=== PATIENT | female | born 1945 | race Caucasian/White ===

== ENCOUNTER 2024-07-30 11:16 | Outpatient (CLI) | payer MEDICARE | END 2024-07-30 23:59 | disposition critical access hospital (66) | LOC: EMS 11:16 | DX: S01.81XA Laceration without foreign body of other part of head, initial encounter (principal); W19.XXXA Unspecified fall, initial encounter; Y92.099 Unspecified place in other non-institutional residence as the place of occurrence of the external cause; R51.9 Headache, unspecified | CPT/HCPCS: A0425; A0429 ==

== ENCOUNTER 2024-07-30 11:34 | Emergency (ER) | payer MEDICARE ==
--- NOTE | 2024-07-30 11:52 | ED Physician Documentation ---
History of Present Illness - Stated complaint Stated Complaint: GLF - Additonal information Additional information: Patient is a 79-year-old female presenting to the emergency department with ground-level fall. Patient has past medical history of dementia ANO x 1 on arrival. Patient appears in no acute distress. She reports pain to her left shoulder and neck and head. Patient sustained laceration to posterior left head. PD PAST MEDICAL HISTORY - Allergies Allergies/Adverse Reactions: Allergies Allergy/AdvReac Type Severity Reaction Status Date / Time Sulfa (Sulfonamide Allergy Unknown Verified 07/30/24 11:41 Antibiotics) milk AdvReac Unknown Verified 07/30/24 11:41 PD ED PE NORMAL - Vitals Vital signs reviewed: Yes - General General: No acute distress, Other (Patient ANO x 1 on arrival but this appears to be patient's baseline.) - HEENT HEENT: Other (Laceration to left temporal bone on examination about 1-1/2 cm in size active bleeding noted no significant hematoma or swelling.) - Neck Neck: Other (C-spine tenderness with decreased range of motion noted on examination.) - Cardiac Cardiac: RRR, No murmur, No gallop, No rub - Respiratory Respiratory: No respiratory distress, Clear bilaterally - Back Back: No spinal TTP, Other (No bony spinal tenderness to thoracic or lumbar spine on examination.) - Derm Derm: Normal color, No rash, Other (No appreciable bruising or hematomas. Laceration to left posterior temporal bone with active bleeding but no other signs of bleeding or injury.) - Extremities Extremities: No edema, Other (No pain on palpation of lower extremities. Strength intact and full range of motion of bilateral ankles knees and hips on examination. Reproducible tenderness with left anterior shoulder passive range of motion intact on examination. No clavicular tenderness bilaterally. No right shoulder tender) Results - Vitals Vitals: Vital Signs - 24 hr 07/30/24 07/30/24 11:41 14:00 Temperature 36.5 C Heart Rate 66 68 Respiratory 16 14 Rate Blood Pressure 114/58 L 105/63 O2 Saturation 99 98 Oxygen O2 Source Room air - Labs Labs: Laboratory Tests 07/30/24 07/30/24 07/30/24 12:14 12:14 12:14 WBC 8.0 RBC 4.04 L Hgb 12.7 Hct 39.8 MCV 98.5 MCH 31.4 H MCHC 31.9 L RDW 13.2 Plt Count 197 MPV 9.3 Neut # (Auto) 6.7 H Lymph # (Auto) 0.7 L Pennington # (Auto) 0.5 Eos # (Auto) 0.1 Baso # (Auto) 0.1 Absolute Nucleated RBC 0.00 Nucleated RBC % 0.0 Sodium 137 Potassium 4.4 Chloride 106 Carbon Dioxide 27 Anion Gap 4.0 L BUN 17 Creatinine 0.7 Estimated GFR (MDRD) 81 L Glucose 79 Calcium 8.6 Magnesium 1.7 Total Bilirubin 0.3 AST 19 ALT 26 Alkaline Phosphatase 52 Total Creatine Kinase 75 Troponin I High Sens Total Protein 6.0 L Albumin 3.7 Globulin 2.3 Albumin/Globulin Ratio 1.6 07/30/24 12:14 WBC RBC Hgb Hct MCV MCH MCHC RDW Plt Count MPV Neut # (Auto) Lymph # (Auto) Pennington # (Auto) Eos # (Auto) Baso # (Auto) Absolute Nucleated RBC Nucleated RBC % Sodium Potassium Chloride Carbon Dioxide Anion Gap BUN Creatinine Estimated GFR (MDRD) Glucose Calcium Magnesium Total Bilirubin AST ALT Alkaline Phosphatase Total Creatine Kinase Troponin I High Sens 2.9 Total Protein Albumin Globulin Albumin/Globulin Ratio Procedures - Laceration (location) parietal head laceration Wound type: Linear Neurovascular status: Sensory intact, Motor intact, Vascular intact, Other (No injury to galea) Anesthesia: Lidocaine 1% with epi Wound preparation: Irrigated copiously NS Skin layer closure: Adrienne (3) Other: Patient tolerated well, No complications, Dressing applied, Tetanus booster given PD Medical Decision Making - ED course Complexity details: reviewed old records, reviewed results, re-evaluated patient ED course: Patient is a 79-year-old female presenting to the emergency department from [facility]. Patient had a fall. I was able to discuss with nursing staff after patient's arrival. She did not lose consciousness they do not suspect she was on the ground for a long as they heard the fall. Patient reported to them that she lost her balance. They believe she hit her head as she has laceration to posterior head. Patient was unable to get up on her own and EMS was called. Patient does not have a recent history of falls she was behaving normally earlier today she did eat and drink this morning without difficulty. Basic labs obtained here in the emergency department including troponin and EKG given possible fall. EKG shows no acute findings no previous EKG to compare to. Additionally no elevation in troponin and basic labs were stable. Hemoglobin stable no significant leukocytosis. Blood sugars stable and patient CT scan of head shows no acute intracranial pathology. CT C-spine- Anterior fusion hardware at C5-C6 is intact without complication widening of the right C3-4 neuroforaminal space which may be postsurgical versus sequela of under not lying benign-appearing neurogenic lesion recommending follow-up with MRI. X-ray of humerus and shoulder shows no acute finding. Patient updated on reassuring findings contacted [facility] to ensure placement of adrienne was appropriate and they were agreeable with this plan. Received confirmation from [facility] and 3 adrienne were placed to left parietal laceration. Patient tolerated this procedure well tetanus was updated here in emergency department. Instructed patient adrienne need to be removed in 5 days this was placed on patient's shins paperwork so facility can help facilitate staple removal. Patient instructed to return with any pain recurring to her neck back or shoulder. If anything worsens she should return to emergency department. Additionally incidental finding of neurogenic lesion that is benign on imaging Patient informed about and placed on discharge paperwork for patient to have repeat imaging with MRI in outpatient setting. Patient understands and is agreeable with this plan. Departure - Departure Disposition: 01 Home, Self Care Clinical Impression: Fall at care home, Scalp laceration, Shoulder injury, Abnormal finding on imaging Condition: Good Instructions: ED Laceration Scalp Stitch Or Stap Comments: 3 adrienne were placed to left parietal laceration. Patient tolerated this procedure well tetanus was updated here in emergency department. Instructed patient adrienne need to be removed in 5 days. Patient instructed to return with any pain recurring to her neck back or shoulder. If anything worsens she should return to emergency department. Additionally incidental finding of neurogenic lesion that is benign on imaging Patient informed about and placed on discharge paperwork for patient to have repeat imaging with MRI in outpatient setting. Patient understands and is agreeable with this [facility] for any redness swelling warmth fevers or discharge from wound of scalp. Return to the ED with any of these findings.
[2024-07-30 12:21] LABS: BASOPHILS # (AUTO) 0.1 10^3/uL (0.0-0.1); BASOPHILS % (AUTO) 0.9 %; EOSINOPHILS # (AUTO) 0.1 10^3/uL (0.0-0.7); EOSINOPHILS % (AUTO) 1.6 %; HCT - HEMATOCRIT 39.8 % (37.0-47.0); HGB - HEMOGLOBIN 12.7 g/dL (12.0-16.0); LYMPHOCYTES # (AUTO) 0.7 10^3/uL (1.5-3.5); LYMPHOCYTES % (AUTO) 8.1 %; MEAN CORPUSCULAR HEMOGLOBIN 31.4 pg (27.0-31.0); MEAN CORPUSCULAR HGB CONC 31.9 g/dL (32.0-36.0); MEAN CORPUSCULAR VOLUME 98.5 fL (81.0-99.0); MEAN PLATELET VOLUME 9.3 fL (7.9-10.8); MONOCYTES # (AUTO) 0.5 10^3/uL (0.0-1.0); NEUTROPHILS # (AUTO) 6.7 10^3/uL (1.5-6.6); NEUTROPHILS % (AUTO) 83.2 %; PLT - PLATELET COUNT 197 10^3/uL (130-450); RED BLOOD COUNT 4.04 10^6/uL (4.20-5.40); RED CELL DISTRIBUTION WIDTH 13.2 % (12.0-15.0)
[2024-07-30 12:37] LABS: ALBUMIN 3.7 g/dL (3.2-5.5); ALBUMIN/GLOBULIN RATIO 1.6 (1.0-2.2); BILIRUBIN,TOTAL 0.3 mg/dL (0.2-1.0); CALCIUM 8.6 mg/dL (8.5-10.3); CREATININE 0.7 mg/dL (0.6-1.3); MAGNESIUM 1.7 mg/dL (1.7-2.3); POTASSIUM 4.4 mmol/L (3.5-4.5)
--- NOTE | 2024-07-30 13:07 | CT Report ---
PROCEDURE: Head WO INDICATIONS: fall head injury TECHNIQUE: Noncontrast 4.5 mm thick angled axial sections acquired from the foramen magnum to the vertex. For r adiation dose reduction, the following was used: automated exposure control, adjustment of mA and/or kV according to patient size. COMPARISON: None. FINDINGS: Image quality: Diagnostic. CSF spaces: Basal cisterns are patent. No extra-axial fluid collections. Ventricles are normal in size and shape. Brain: No midline shift. No intracranial masses or hemorrhage. Carrillo-white matter interface is norm al. Skull and face: Calvarium and visualized facial bones are intact, without suspicious lesions. Left parietal scalp hematoma. Sinuses: Visualized sinuses and mastoids are clear. IMPRESSION: No acute intracranial pathology. Left frontal scalp hematoma without underlying calvarial fracture. Reviewed by: Ginna Leahy MD, PhD on 07/30/2024 1:06 PM PDT Approved by: Ginna Leahy MD, PhD on 07/30/2024 1:06 PM PDT Station ID: [id number]
--- NOTE | 2024-07-30 13:33 | CT Report ---
PROCEDURE: Cervical Spine WO INDICATIONS: fall head injury TECHNIQUE: Noncontrast 3 mm thick sections acquired from the skull base to the T4 level. Sagittal and coronal r eformats were then constructed. For radiation dose reduction, the following was used: automated exp osure control, adjustment of mA and/or kV according to patient size. COMPARISON: None. FINDINGS: Image quality: Excellent. Bones: Diffuse osseous demineralization limits sensitivity for a subtle nondisplaced fracture. Within these limitations, no acute fracture or traumatic subluxation. Anterior fusion hardware of C5-C6 is intact with no perihardware lucency to suggest hardware loosening. Marked multilevel degenerative shai nges of the spine with ankylosis of C3-C4 and C5-C7. The C4-5 disc space appears corticated with no l ucency to suggest a hyperextension injury. Widening of the right C3-C4 neural foraminal space (, ). Slight reversal of the normal cervical lordosis centered at C6-C7. Visualized superior ribs a re intact. Soft tissues: Prevertebral soft tissues are normal in thickness. No paravertebral hematomas. No ap ical pneumothoraces. Mild calcification of the thoracic aorta. IMPRESSION: 1.Diffuse osseous demineralization limits sensitivity for a subtle nondisplaced fracture. Within thes e limitations, no definite fracture or traumatic subluxation. If there is high clinical suspicion, re commend MRI for further evaluation. 2.Anterior fusion hardware at C5-C6 is intact, without complication. Widening of the right C3-C4 neur al foraminal space which may be postsurgical versus sequela of an underlying benign appearing neuroge woo lesion. Recommend comparison with prior imaging, if available. Otherwise, consider an MRI for fur ther evaluation. 3.Marked multilevel degenerative changes of the spine with ankylosis of C3-C4 and C5-C7. Reviewed by: Franky Rose MD on 07/30/2024 12:31 PM JEN Approved by: Franky Rose MD on 07/30/2024 12:31 PM JEN Station ID: [id number]
--- NOTE | 2024-07-30 13:35 | XRAY Report ---
PROCEDURE: Humerus LT INDICATIONS: fall TECHNIQUE: 2 views of the humerus were acquired. COMPARISON: None. FINDINGS: Bones: No fractures or dislocations. No suspicious bony lesions. Diffuse osseous demineralization. Mild acromioclavicular joint degeneration. Soft tissues: No suspicious soft tissue calcifications or masses. IMPRESSION: No acute bony abnormality. If clinical symptoms persist, consider repeat radiograph in 10-14 days [facility] cross-sectional imaging. Reviewed by: Franky Rose MD on 07/30/2024 12:34 PM JEN Approved by: Franky Rose MD on 07/30/2024 12:34 PM JEN Station ID: [id number]
[2024-07-30] MEDS: lidocaine 1% 20 ML MDV SUBQ ONE (13:37)
[2024-07-30] MEDS: TETANUS/DIPHTHERIA/PERTUSSIS 0.5 ML SYRINGE IM ONE (13:38)
[2024-07-30 14:09] VITALS: BP 105/63; O2SAT 98
== END 2024-07-30 16:37 | disposition home or self-care (01) ==
LOC: ED 11:34
DX: S01.01XA Laceration without foreign body of scalp, initial encounter (principal); S49.92XA Unspecified injury of left shoulder and upper arm, initial encounter; W18.39XA Other fall on same level, initial encounter; Y92.129 Unspecified place in nursing home as the place of occurrence of the external cause; R93.7 Abnormal findings on diagnostic imaging of other parts of musculoskeletal system; Z91.81 History of falling
CPT/HCPCS: 12001; 36415; 80053; 82550; 83735; 84484; 85025; 90471; 93005; 99284

== ENCOUNTER 2024-07-30 16:42 | Outpatient (CLI) | payer MEDICARE | END 2024-07-30 23:59 | disposition home or self-care (01) | LOC: EMS 16:42 | PROVIDERS: ATTEND Physician Assistant | DX: R41.0 Disorientation, unspecified (principal); S01.01XA Laceration without foreign body of scalp, initial encounter; W18.30XA Fall on same level, unspecified, initial encounter | CPT/HCPCS: A0425; A0428 ==